=== PATIENT | male | born 1965 | race Caucasian/White ===

== ENCOUNTER 2018-05-12 19:38 | Emergency (ER) | payer OTHER ==
[2018-05-12] MEDS ORDERED: ACETAMINOPHEN 325 MG TABLET PO ONE (19:43)
[2018-05-12 19:46] VITALS: BP 147/74
[2018-05-12] MEDS ORDERED: HYDROCODONE/ACETAMINOPHEN 5-325 MG (6 TAB/ER DISP) PO PRN (19:57)
--- NOTE | 2018-05-12 20:01 | ER Document Report ---
ED Extremity Problem, Upper - General Chief Complaint: Arm Injury Stated Complaint: ARM INJURY Time Seen by Provider: 05/12/18 19:53 Mode of Arrival: Ambulatory Information source: Patient Notes: Chief complaint: Right distal arm pain History of complain:( obtained from----patient) 52 years old male presents today with pain over the origin, trying to break a fall just prior to arrival strained his muscle. Presents with severe pain but no numbness or tingling sensation. Slight weakness on flexion of the forearm. Onset: Just prior to arrival sudden Duration: Just prior to arrival Severity: Moderate Quality: Sharp Context: As described above Exacerbating factor and relieving factors: Flexion extension of the forearm REVIEW OF SYSTEMS: CONSTITUTIONAL : Denies fever, chills, or sweats. Denies recent illness. EENT: Denies eye, ear, throat, or mouth pain or symptoms. Denies nasal or sinus congestion or discharge. Denies throat, tongue, or mouth swelling or difficulty swallowing. CARDIOVASCULAR: Denies chest pain. Denies palpitations or racing or irregular heart beat. Denies ankle edema. RESPIRATORY: Denies cough, cold, or chest congestion. Denies shortness of breath, difficulty breathing, or wheezing. GASTROINTESTINAL: Denies distention. Denies nausea, vomiting, or diarrhea. Denies blood in vomitus, stools, or per rectum. Denies black, tarry stools. Denies constipation. GENITOURINARY: Denies difficulty urinating, painful urination, burning, frequency, blood in urine, or discharge. FEMALE GENITOURINARY: Denies vaginal bleeding, heavy or abnormal periods, irregular periods. Denies vaginal discharge or odor. MUSCULOSKELETAL: Denies back or neck pain or stiffness. Denies joint pain or swelling. SKIN: Denies rash, lesions or sores. HEMATOLOGIC : Denies easy bruising or bleeding. LYMPHATIC: Denies swollen, enlarged glands. NEUROLOGICAL: Denies confusion or altered mental status. Denies passing out or loss of consciousness. Denies dizziness or lightheadedness. Denies headache. Denies weakness or paralysis or loss of use of either side. Denies problems with gait or speech. Denies sensory loss, numbness, or tingling. Denies seizures. PSYCHIATRIC: Denies anxiety or stress. Denies depression, suicidal ideation, or homicidal ideation. ALL OTHER SYSTEMS REVIEWED AND NEGATIVE. PHYSICAL EXAMINATION: GENERAL: Well-appearing, well-nourished and in no acute distress. HEAD: Atraumatic, normocephalic. EYES: Pupils equal round and reactive to light, extraocular movements intact, conjunctiva are normal. ENT: Nares patent, oropharynx clear without exudates. Moist mucous membranes. NECK: Normal range of motion, supple without lymphadenopathy LUNGS: Breath sounds clear to auscultation bilaterally and equal. No wheezes rales or rhonchi. HEART: Regular rate and rhythm without murmurs ABDOMEN: Soft, nontender, nondistended abdomen. No guarding, no rebound. No masses appreciated. Examination of genitals-deferred Musculoskeletal: Normal range of motion, no pitting or edema. No cyanosis. Except right biceps tendon has ruptured and accumulating approximately. Which is tender on palpation. Has difficulty in flexing and extending the forearm. With some weakness. Neurovascular function distally within normal limit NEUROLOGICAL: Cranial nerves grossly intact. Normal speech, normal gait. Normal sensory, motor exams PSYCH: Normal mood, normal affect. SKIN: Warm, Dry, normal turgor, no rashes or lesions noted. Dictation was performed using [employer] voice recognition software TRAVEL OUTSIDE OF THE [place] IN LAST 30 DAYS: No - Related Data Allergies/Adverse Reactions: esomeprazole magnesium [From Nexium] Allergy (Verified 06/14/13 20:26) Past Medical History - Social History Smoking Status: Never Smoker Chew tobacco use (# tins/day): No Frequency of alcohol use: None Drug Abuse: None Lives with: Family Family History: None, Reviewed & Not Pertinent Patient has suicidal ideation: No Patient has homicidal ideation: No - Past Medical History Cardiac Medical History: Reports: Hx Hypercholesterolemia, Hx Hypertension Renal/ Medical History: Denies: Hx Peritoneal Dialysis GI Medical History: Reports: Hx Gastroesophageal Reflux Disease Past Surgical History: Reports: Hx Abdominal Surgery - hernia - Immunizations Immunizations up to date: Yes Hx Diphtheria, Pertussis, Tetanus Vaccination: Yes Review of Systems - Review of Systems Notes: Dictated Physical Exam - Vital signs Vitals: Temp Pulse Resp BP Pulse Ox 98.4 F 86 18 147/74 H 95 05/12/18 19:41 05/12/18 19:41 05/12/18 19:41 05/12/18 19:41 05/12/18 19:41 - Notes Notes: Dictated Course - Re-evaluation Re-evalutation: 05/12/18 20:03 Applied cold band to the right bicep muscles - Vital Signs Vital signs: Temp Pulse Resp BP Pulse Ox 98.4 F 86 18 147/74 H 95 05/12/18 19:41 05/12/18 19:41 05/12/18 19:41 05/12/18 19:41 05/12/18 19:41 Discharge - Discharge Clinical Impression: Tear of biceps tendon Condition: Fair Disposition: HOME, SELF-CARE Instructions: Tendon Laceration ([facility]), Tendon Laceration Referral ([facility]) Additional Instructions: Tendon Strain You have strained a tendon. "Strain" means stretching and partial tearing of the fibers of the tendon. This often occurs with strenuous exertion, or during an injury that suddenly stretches the tendon. The seriousness of a strain varies. Some strains heal within days, others cause problems for months. X-rays don't show a tendon strain. X-rays are taken only if symptoms suggest that a fracture could be present. The usual treatment of a tendon strain is rest and ice packs. Sometimes a sling, splint, or crutches may be necessary to rest the tendon. The area can be used again once pain subsides. Severe strains require a special exercise and stretching program to prevent permanent stiffness and disability. Your doctor will advise you if this will be necessary. Call the doctor immediately if pain or swelling becomes severe, or if numbness or discoloration develop. Follow-up with orthopedic surgeon soon as possible Prescriptions: Hydrocodone Bit/Acetaminophen [Hydrocodon-Acetaminophen 5-325] 1 each PO TID # 20 tablet Ibuprofen [Ibu] 600 mg PO TID #30 tablet
== END 2018-05-12 20:08 | disposition home or self-care (01) ==
LOC: ER 19:38
DX: S46.211A Strain of muscle, fascia and tendon of other parts of biceps, right arm, initial encounter (principal); W19.XXXA Unspecified fall, initial encounter; E78.00 Pure hypercholesterolemia, unspecified; I10 Essential (primary) hypertension
CPT/HCPCS: 99283

== ENCOUNTER 2018-07-12 10:39 | Day surgery (SDC) | payer OTHER ==
--- NOTE | 2018-07-08 10:57 | RADIOLOGY REPORT (SQ) ---
EXAM DESCRIPTION: CHEST PA/LATERAL COMPLETED DATE/TIME: 07/08/2018 10:49 am REASON FOR STUDY: PRE-OP COMPARISON: 09/04/2014 EXAM PARAMETERS: NUMBER OF VIEWS: two views TECHNIQUE: Digital Frontal and Lateral radiographic views of the chest acquired. RADIATION DOSE: NA LIMITATIONS: none FINDINGS: LUNGS AND PLEURA: There is a calcified granuloma in the left upper lobe. No consolidation or effusions. No pneumothorax. MEDIASTINUM AND HILAR STRUCTURES: No masses or contour abnormalities. HEART AND VASCULAR STRUCTURES: Heart normal size. No evidence for failure. BONES: No acute findings. HARDWARE: None in the chest. OTHER: No other significant finding. IMPRESSION: NO SIGNIFICANT RADIOGRAPHIC FINDING IN THE CHEST. TECHNICAL DOCUMENTATION: JOB ID: [id number] [employer]- All Rights Reserved Reading location - IP/workstation name: [email or web address]
[2018-07-08 11:07] LABS: APPEARANCE,URINE CLEAR; BILIRUBIN,URINE NEGATIVE (NEGATIVE); COLOR,URINE YELLOW; GLUCOSE, URINE NEGATIVE (NEGATIVE); KETONES,URINE NEGATIVE (NEGATIVE); LEUKOCYTE ESTERASE,URINE NEGATIVE (NEGATIVE); NITRITE,URINE NEGATIVE (NEGATIVE); PROTEIN,URINE NEGATIVE (NEGATIVE); URINE SPECIFIC GRAVITY 1.024
--- NOTE | 2018-07-08 11:59 | EKG REPORT ---
SEVERITY:- NORMAL ECG - SINUS RHYTHM : Confirmed by: Harsha Guerrier MD 08-Jul-2018 11:59:01
[~2018-07-12 10:39] MED LIST: ACETAMINOPHEN 1,000 MG/100 ML RTUPB IV ONE; CEFAZOLIN 2 GM/D5W RTU 2 GM/50 ML RTUPB IV PRN; DEXAMETHASONE SOD PHOSPHATE INJ 4 MG/1 ML VIAL ONE; FENTANYL CITRATE INJ/PF 100 MCG/2 ML AMPUL ONE; LACTATED RINGERS 1000 ML IV PRN; LIDOCAINE 0.5% INJ-PF (5 MG/ML) 50 ML SDV SUBCUT PRN; MIDAZOLAM 2 MG/2 ML INJ ONE; ONDANSETRON HCL INJ/PF 4 MG/2 ML SDV ONE; PROPOFOL INJ 200 MG/20 ML VIAL IV ONE
[2018-07-12] MEDS ORDERED: CEFAZOLIN 2 GM/D5W RTU 2 GM/50 ML RTUPB IV ONE (11:16)
[2018-07-12] MEDS ORDERED: METOCLOPRAMIDE HCL INJ/PF 10 MG/2 ML SDV ONE (11:34)
[2018-07-12] MEDS ORDERED: KETOROLAC TROMETHAMINE 60 MG/2 ML SDV ONE (11:34)
[2018-07-12] MEDS ORDERED: DEXAMETHASONE SOD PHOSPHATE INJ 4 MG/1 ML VIAL ONE (11:34)
[2018-07-12] MEDS ORDERED: LIDOCAINE 2% INJ-PF (20 MG/ML) 2 ML AMPUL ONE (11:34)
[2018-07-12] MEDS ORDERED: BUPIVACAINE HCL 0.5 % INJ/PF 30 ML SDV ONE (11:36)
[2018-07-12 11:51] LABS: HEMATOCRIT 40.1 % (37.9-51.0); HEMOGLOBIN 13.7 g/dL (13.5-17.0); MEAN CORPUSCULAR HEMOGLOBIN 30.2 pg (27.0-33.4); MEAN CORPUSCULAR HGB CONC 34.3 g/dL (32.0-36.0); MEAN CORPUSCULAR VOLUME 88 fl (80-97); PLATELET COUNT 280 10^3/uL (150-450); RED BLOOD COUNT 4.55 10^6/uL (4.35-5.55); RED CELL DISTRIBUTION WIDTH 13.7 % (11.5-14.0); WHITE BLOOD COUNT 11.5 10^3/uL (4.0-10.5)
[2018-07-12 12:11] LABS: ANION GAP 10 (5-19); BLOOD UREA NITROGEN 15 mg/dL (7-20); CALCIUM 9.5 mg/dL (8.4-10.2); CARBON DIOXIDE 25 mmol/L (22-30); CHLORIDE 106 mmol/L (98-107); GLUCOSE 87 mg/dL (75-110); POTASSIUM 4.7 mmol/L (3.6-5.0)
[2018-07-12] MEDS ORDERED: ONDANSETRON HCL INJ/PF 4 MG/2 ML SDV ONE (13:40)
[2018-07-12] MEDS ORDERED: ACETAMINOPHEN 1,000 MG/100 ML RTUPB IV ONE (14:39)
[2018-07-12] MEDS ORDERED: MEPERIDINE HCL/PF INJ 25 MG/1 ML DISP.SYRIN IV PRN ×2 (14:44→17:33)
[2018-07-12] MEDS ORDERED: MORPHINE SULFATE 10 MG/ML INJ IV PRN ×2 (14:44→17:12)
[2018-07-12] MEDS ORDERED: DIPHENHYDRAMINE HCL 50 MG/ML VIAL IV PRN ×2 (14:44→17:33)
[2018-07-12] MEDS ORDERED: PROMETHAZINE HCL INJ 25 MG/1 ML VIAL IV PRN ×4 (14:44→17:33)
[2018-07-12] MEDS ORDERED: FENTANYL CITRATE INJ/PF 100 MCG/2 ML AMPUL IV PRN ×6 (14:44→17:33)
[2018-07-12] MEDS ORDERED: DEXMEDETOMIDINE INJ 80 MCG/20 ML VIAL IV ONE (15:39)
[2018-07-12] MEDS ORDERED: FENTANYL CITRATE INJ/PF 100 MCG/2 ML AMPUL ONE (15:39)
[2018-07-12] MEDS ORDERED: ONDANSETRON HCL INJ/PF 4 MG/2 ML SDV IV PRN (17:12)
[2018-07-12] MEDS ORDERED: OXYCODONE-ACETAMINOPHEN 5-325 MG TABLET PO PRN (17:12)
--- NOTE | 2018-07-12 17:12 | Discharge Summary ---
Discharge Summary (SDC) - Discharge Final Diagnosis: Right distal biceps tendon rupture Date of Surgery: 07/12/18 Discharge Date: 07/12/18 Condition: Good Treatment or Instructions: Schedule Follow Up w/ Dr. Ignacio Powell @ [facility] for Surgery to be seen in 10-14 days or as scheduled [place]: [place]: [place]: Ice and elevate Keep splint clean/dry/intact. If your fingers become numb please unwrap the Jas wrap but leave the splint in place, if the sensation does not return within 30 minutes please return to the emergency department. May begin finger range of motion attempting to make full fist. Please use ibuprofen (Motrin or Advil) 600-800 mg every 8 hours as needed for pain or fever DO NOT TAKE w/ TORADOL may use once TORADOL complete. You may also use acetaminophen (Tylenol) 1000 mg every 4-6 hours as needed for pain or fever. Please be aware that many medications contain acetaminophen, do not exceed a total of 1000 mg of acetaminophen every 6 hours. If ibuprofen and acetaminophen are not sufficient for your pain you may take the Percocet/Mallory. Please be aware that the Percocet/Mallory does contain Tylenol. Stool softener of choice when on pain medication. USE OF [id number] IBUPROFEN: Ibuprofen (Advil, Nuprin, Medipren, Motrin IB) is a medication for fever and pain control. In addition, it has anti- inflammatory effects which may be beneficial, especially in the treatment of injuries. It's best to take ibuprofen with food. Persons with ulcer disease or allergy to aspirin should notify their physician of this before taking ibuprofen. Ibuprofen can be given every four to six hours, for a total of four doses daily. Age Pain or fever dose Antiinflammatory dose 6-8 yr 200 mg (1 tab) 200 mg (1 tab) 9-11 yr 200 mg (1 tab) 200-400 mg (1-2 tab) 11-14 yr 200-400 mg (1-2 tab) 400 mg (2 tab) 15-adult 400 mg (2 tab) 600 mg (3 tab) ORAL NARCOTIC MEDICATION: You have been given a prescription for pain control. This medication is a narcotic. It's best taken with food, as nausea can result if taken on an empty stomach. Don't operate machinery or drive within six hours of taking this medication. Do not combine this medicine with alcohol, or with any medication which can cause sedation (such as cold tablets or sleeping pills) unless you get permission from the physician. Narcotics tend to cause constipation. If possible, drink plenty of fluids and eat a diet high in fiber and fruits. Please be aware that prescription narcotics also have the potential for abuse. People become addicted to these medications because of the general sense of wellbeing that they induce. This feeling along with a significant reduction in tension, anxiety, and aggression provides a stimulating seductive quality to these drugs. Once your pain is under control, we encourage you to discard your unused narcotics. Prescriptions: Ketorolac Tromethamine [Toradol 10 mg Tablet] 10 mg PO Q8HP PRN #12 tablet PRN Reason: Oxycodone HCl/Acetaminophen [Percocet 5-325 mg Tablet] 1 tab PO Q6 #25 tab Referrals: SANDY HORN MD [Primary Care Provider] - Respiratory Treatments at Home: Deep Breathing/Coughing Discharge Activity: No Lifting Over 10 Pounds, No Lifting/Push/Pulling Report the Following to Your Physician Immediately: Fever over 101 Degrees, Unusual Bleeding, Redness, Swelling, Warmth, Increased Soreness
--- NOTE | 2018-07-12 17:30 | RADIOLOGY REPORT (SQ) ---
EXAM DESCRIPTION: NO CHG FLUORO; ELBOW RIGHT AP/LAT COMPLETED DATE/TIME: 07/12/2018 5:20 pm REASON FOR STUDY: RT BICEP TENDON REPAIR W/ ALLOGRAFT S46.291A INJ MUSCLE, FASCIA AND TENDON OF PRT BICEPS, RIGHT COMPARISON: None. FLUOROSCOPY TIME: 18 seconds 2 images saved to PACS. TECHNIQUE: Intra-operative images acquired during surgical procedure to evaluate progress. NUMBER OF IMAGES: 2 LIMITATIONS: None. FINDINGS: Selected images from procedure performed in the operating room. There is a suture anchor overlying proximal radius. IMPRESSION: IMAGE(S) OBTAINED DURING PROCEDURE. COMMENT: Quality ID [id number]: Final reports for procedures using fluoroscopy that document radiation exp osure indices, or exposure time and number of fluorographic images (if radiation exposure indices are not available) Please consult full operative report of the attending physician for description of the procedure. TECHNICAL DOCUMENTATION: JOB ID: [id number] [employer]- All Rights Reserved Reading location - IP/workstation name: [email or web address]
--- NOTE | 2018-07-12 17:30 | RADIOLOGY REPORT (SQ) ---
EXAM DESCRIPTION: NO CHG FLUORO; ELBOW RIGHT AP/LAT COMPLETED DATE/TIME: 07/12/2018 5:20 pm REASON FOR STUDY: RT BICEP TENDON REPAIR W/ ALLOGRAFT S46.291A INJ MUSCLE, FASCIA AND TENDON OF PRT BICEPS, RIGHT COMPARISON: None. FLUOROSCOPY TIME: 18 seconds 2 images saved to PACS. TECHNIQUE: Intra-operative images acquired during surgical procedure to evaluate progress. NUMBER OF IMAGES: 2 LIMITATIONS: None. FINDINGS: Selected images from procedure performed in the operating room. There is a suture anchor overlying proximal radius. IMPRESSION: IMAGE(S) OBTAINED DURING PROCEDURE. COMMENT: Quality ID [id number]: Final reports for procedures using fluoroscopy that document radiation exp osure indices, or exposure time and number of fluorographic images (if radiation exposure indices are not available) Please consult full operative report of the attending physician for description of the procedure. TECHNICAL DOCUMENTATION: JOB ID: [id number] [employer]- All Rights Reserved Reading location - IP/workstation name: [email or web address]
[2018-07-12] MEDS ORDERED: ROPIVACAINE HCL 0.5% INJ/PF (5 MG/1 ML) 30 ML SDV ONE (17:49)
[2018-07-12] MEDS ORDERED: LIDOCAINE 2% INJ (20 MG/ML) 20 ML MDV ONE (17:49)
[2018-07-12] MEDS ORDERED: LIDOCAINE 2%/EPINEPHRINE INJ 20 ML VIAL ONE (17:49)
[2018-07-12] MEDS ORDERED: OXYCODONE-ACETAMINOPHEN 5-325 MG TABLET ONE (18:27)
[2018-07-12 19:26] VITALS: BP 139/88
--- NOTE | 2018-07-13 23:16 | Operative Report ---
Operative Report DATE OF SURGERY: 07/12/18 PREOPERATIVE DIAGNOSIS: Right distal biceps rupture POSTOPERATIVE DIAGNOSIS: Same OPERATION: Repair of distal biceps utilizing Achilles tendon allograft SURGEON: MASTER MCCRAY ANESTHESIA: GA COMPLICATIONS: None ESTIMATED BLOOD LOSS: Minimal PROCEDURE: Indication for above procedure: 53-year-old male who sustained a injury to his right arm. He was originally seen at the emergency room and later sent to our office for further diagnosis and treatment. Patient advised suggested distal biceps tendon rupture. At that point we discussed treatment options including operative versus nonoperative intervention. Risks and benefits were explained patient verbalized understanding consented for the surgical procedure. Procedure In Detail: Patient was seen and evaluated in the preoperative holding area. The RIGHT upper extremity was initialized and marked. Patient received 2g of Ancef IV for bacterial prophylaxis. Patient was taken back to the operative room where transferred to the operative table and placed under general anesthesia. Once they were adequately anesthetized a surgical team debriefing was performed ensuring all instrumentation was available, the surgical procedure was discussed with possible concerns reviewed. The upper extremity was prepped with ChloraPrep and draped in a sterile fashion and sterile tourniquet was placed. A timeout was done identifying correct patient, procedure and extremity everyone in attendance agree with this and verbalized no concerns. The extremity was exsanguinated the tourniquet was inflated to 250 mmHg. A longitudinal 3 cm skin incision was made along the distal lateral aspect of the form. Blunt dissection was performed. The lateral antebrachial cutaneous nerve was identified and retracted. There was scarring of the remnant biceps tendon within the lacertus fibrosus down to the radial tuberosity. Branches of the Amina were identified and tied off. Branches of the superficial radial nerve while maintaining supination the biceps tuberosity was identified and debrided. Superficial radial nerve branch was identified and retracted. During dissection of the bicipital tuberosity special care was to avoid traction on the adjacent nerves and no reverse retractors along the tuberosity. A surgical incision was then extended proximally first a transverse limb along the antecubital fossa and along the proximal medial aspect. Blunt dissection was performed. Any peripheral veins were coagulated. The cephalic vein was retracted. Branches of the medial cutaneous nerve of the arm were identified along with the neurovascular bundle including the brachial artery and median nerve. The remnant biceps was identified and significantly scarred to surrounding soft tissues. It was bluntly freed from any fibrous scar tissue. Along the lateral aspect there was significant scarring of the lateral antebrachial cutaneous nerve to the underlying brachialis and biceps. Neuro lysis of the lateral antebrachial cutaneous nerve was performed. Tourniquet was deflated. Any peripheral bleeding was controlled with bipolar cautery. The [place] tendon was not able to adequately reach the radial tuberosity. Thus decision was made to proceed with tendon graft. Achilles tendon allograft was thawed on the back table. Once adequately followed it was debrided and a Krakw stitch was placed to allow for 8 mm of tendon graft within the radial tuberosity. Tourniquet was once again reinsufflated. The charter pilot hole for the biceps button was then placed with the arm in full supination centered over the radial tuberosity an 8 mm reamer was then utilized. Copious irrigation was performed to avoid postoperative heterotopic ossification. The tendon allograft was then placed within the radial tuberosity and secured. C-arm fluoroscopy was obtained confirming the button was adequately flipped. A stitch was then placed through the allograft and secured into position. While maintaining tension on the allograft the biceps tenodesis screw was placed along the radial aspect of the radial tuberosity to force the allograft in the ulnar direction. Once complete there was adequate fixation of the allograft within the radial tuberosity. Tourniquet deflated for a final time any peripheral bleeding controlled with bipolar cautery. The allograft was then tunneled deep to the lateral antebrachial brachial cutaneous nerve. While maintaining the elbow at 60 degrees of flexion a small slit was placed to the allograft and the [place] tendon weaved into the Achilles allograft. My pharmacy assistant maintained traction on both the [place] tendon and allograft tendon while maintaining 60 degrees of flexion. The tendon was then secured with multiple Krakw sutures utilizing #2 FiberWire. At completion patient had adequate tension with 60 degrees of flexion. For further security multiple [id number] 2-0 Vicryl sutures were placed from the muscle into the allograft however tissue was suboptimal. Subcutaneous tissues were closed with 2-0 Vicryl. Skin was closed with interrupted subcuticular 4-0 Monocryl reinforced with Dermabond and Steri- Strips. 20 cc of 0.5% bupivacaine without epinephrine was injected for postoperative pain control. Patient was placed in a posterior elbow splint along with sugar tong splint maintaining elbow at 90 degrees of flexion and wrist in 45 degrees of supination. Sponge counts, instrument counts, needle counts were correct. Patient was then awoken from anesthesia. Transferred from the operating room table to the operating room stretcher. There was no intraoperative complications patient tolerated procedure well stable to PACU. Postop plan: Patient will follow-up the office in 2 weeks at which point he will be transitioned into a long-arm cast maintaining elbow at 90 degrees of flexion. At 6 weeks postoperatively he will be transition to a elbow brace. Will begin range of motion 8 weeks postoperatively. Will begin strengthening 3 months postoperatively no lifting greater than 5 pounds for the first 12 weeks. Anticipate return to full activity 6-9 months.
== END 2018-07-12 19:25 | disposition home or self-care (01) ==
LOC: OROUT 10:39
PROVIDERS: ATTEND Orthopaedic Surgery
DX: S46.211A Strain of muscle, fascia and tendon of other parts of biceps, right arm, initial encounter (principal); W19.XXXA Unspecified fall, initial encounter; E78.00 Pure hypercholesterolemia, unspecified; I10 Essential (primary) hypertension; Z79.899 Other long term (current) drug therapy; Z88.8 Allergy status to other drugs, medicaments and biological substances
CPT/HCPCS: 93005; 36415; 85027; 80048; 81001; 71046; 73070; 93010; 24341; J2795; J2250; J3490 ×5; J1100; J1885; J3010; J2765; J2405; J2704; J0690; J0131; 01710